=== PATIENT | male | born 1990 | race Caucasian/White ===

== ENCOUNTER 2018-04-10 22:25 | Emergency (ER) | payer OTHER ==
[2018-04-10] MEDS: LIDOCAINE W/EPINEPHRINE 1% 20ML VIAL SC (23:13)
[2018-04-10] MEDS: NORCO 5/325MG TABLET (BULK FOR ED) PO (23:48)
== END 2018-04-10 23:51 | disposition home or self-care (01) ==
LOC: M ED 22:25
DX: S01.511A Laceration without foreign body of lip, initial encounter (principal); W22.8XXA Striking against or struck by other objects, initial encounter; Y92.39 Other specified sports and athletic area as the place of occurrence of the external cause
CPT/HCPCS: 12011